=== PATIENT | female | born 1960 | race Caucasian/White ===

== ENCOUNTER → 2024-08-15 08:56 | Outpatient (REF) | payer OTHER, SELFPAY | LOC: RAD 08:56 | PROVIDERS: ATTENDING PHYSICIAN Podiatrist Foot & Ankle Surgery; FAMILY PHYSICIAN Internal Medicine | DX: E11.59 Type 2 diabetes mellitus with other circulatory complications (principal); E11.41 Type 2 diabetes mellitus with diabetic mononeuropathy | CPT/HCPCS: 93922; 93925 ==

== ENCOUNTER → 2024-09-01 14:58 | Outpatient (REF) | payer OTHER, SELFPAY | LOC: RAD 14:58 | PROVIDERS: ATTENDING PHYSICIAN Surgery Vascular Surgery | DX: G45.9 Transient cerebral ischemic attack, unspecified (principal) | CPT/HCPCS: 93880 ==

== ENCOUNTER → 2024-10-05 10:48 | Outpatient (REF) | payer OTHER, SELFPAY | LOC: PAVMRI 10:48 | PROVIDERS: ATTENDING PHYSICIAN Surgery Vascular Surgery; FAMILY PHYSICIAN Internal Medicine | DX: I65.21 Occlusion and stenosis of right carotid artery (principal); I65.22 Occlusion and stenosis of left carotid artery | CPT/HCPCS: 70544; 70549; A9585 ==

== ENCOUNTER → 2025-04-10 16:25 | Outpatient (REF) | payer OTHER, SELFPAY | LOC: MRI 3T 16:25 | PROVIDERS: ATTENDING PHYSICIAN Surgery Vascular Surgery; FAMILY PHYSICIAN Internal Medicine | DX: I65.21 Occlusion and stenosis of right carotid artery (principal) | CPT/HCPCS: 70544; 70549; A9585 ==